=== PATIENT | male | born 1950 | race Caucasian/White ===

== ENCOUNTER 2018-11-29 09:53 | Emergency (ER) | payer SELFPAY ==
--- NOTE | 2018-11-29 10:04 | NUR ---
Patient came in seeking transfer to [facility], he decided to leave and go to [facility] by himself
== END 2018-11-29 10:07 | disposition left against medical advice (07) ==
LOC: ER 09:53
DX: Z53.21 Procedure and treatment not carried out due to patient leaving prior to being seen by health care provider (principal)